=== PATIENT | male | born 1935 | race Caucasian/White ===

== ENCOUNTER 2024-12-21 18:45 | Inpatient (IN) | payer OTHER ==
[~2024-12-21] VITALS: Ht 165.1 cm; Wt 54.0 kg
[2024-12-21 19:15] LABS: BASOPHILS % (AUTO) 0.4 % (0.0-2.0); EOSINOPHILS # (AUTO) 0.1 K/uL (0.0-0.7); EOSINOPHILS % (AUTO) 1.1 % (0.0-6.0); HEMATOCRIT 28 % (39-51); HEMOGLOBIN 8.9 g/dL (13.5-17.5); LYMPHOCYTES % (AUTO) 15.2 % (20.0-44.0); MEAN CORPUSCULAR HEMOGLOBIN 25 PG (26.0-33.0); MEAN CORPUSCULAR HGB CONC 32 g/dl (31.0-36.0); MEAN CORPUSCULAR VOLUME 80 fL (80-96); MONOCYTES # (AUTO) 0.3 K/uL (0.1-1.30); MONOCYTES % (AUTO) 5.1 % (2.0-12.0); NEUTROPHILS # (AUTO) 5.1 K/uL (1.8-8.9); NEUTROPHILS % (AUTO) 78.2 % (43.0-81.0); PLATELET COUNT (AUTO) 389 K/uL (150-450); RED BLOOD CELL COUNT(AUTO) 3.51 MIL/uL (4.5-6.0); RED CELL DISTRIBUTION WIDTH 18.8 % (11.5-15.0); WHITE BLOOD COUNT (AUTO) 6.6 K/uL (4.3-11.0)
[2024-12-21] MEDS: IV NS 0.9% 1,000 ML BAG IV ONE (19:15)
[2024-12-21] MEDS ORDERED: ONDANSETRON HCL/PF 4 MG/2 ML VIAL ONE (19:19)
[2024-12-21] MEDS: ONDANSETRON HCL/PF - ER 4 MG/2 ML VIAL IV ONE (19:20)
[2024-12-21] MEDS ORDERED: MORPHINE SULFATE INJ 4 MG/ML DISP.SYRIN ONE (19:20)
[2024-12-21] MEDS: MORPHINE SULFATE INJ 2 MG/ML DISP.SYRIN IV ONE (19:25)
[2024-12-21] MEDS ORDERED: ACETAMINOPHEN ES 500 MG TABLET PO ONE (19:30)
[2024-12-21 19:31] LABS: INR 1.24 (0.91-1.10); PARTIAL THROMBOPLASTIN TIME 22.7 SEC (24.3-34.3)
[2024-12-21 19:32] LABS: ALANINE AMINOTRANSFERASE 33 U/L (12-78); ALBUMIN 3.1 g/dL (3.4-5.0); ALKALINE PHOSPHATASE 99 U/L (46-116); ASPARTATE AMINOTRANSFERASE 32 U/L (15-37); BILIRUBIN,DIRECT 0.2 mg/dL (0.0-0.2); BILIRUBIN,TOTAL 0.7 mg/dL (0.2-1.0); CARBON DIOXIDE 17 mmol/L (21-32); CHLORIDE 99 mmol/L (98-107); CREATININE 1.5 mg/dL (0.6-1.3); GLUCOSE 122 mg/dL (74-106); POTASSIUM 5.1 mmol/L (3.5-5.1); SODIUM SERUM 140 mmol/L (136-145); TOTAL PROTEIN, SERUM 7.1 g/dL (6.4-8.2); UREA NITROGEN, BLOOD 42 mg/dL (7-18)
[2024-12-21] MEDS ORDERED: BISA10SU11 RC (19:39)
[2024-12-21] MEDS ORDERED: ATOR40TA PO (19:39)
[2024-12-21] MEDS ORDERED: ONDA8TAB65 PO (19:39)
[2024-12-21] MEDS ORDERED: FOLI0.4T6 PO (19:39)
[2024-12-21] MEDS ORDERED: ZINC50TA69 PO (19:39)
[2024-12-21] MEDS ORDERED: CRAN300T PO (19:39)
[2024-12-21] MEDS ORDERED: DOCU100C36 PO (19:39)
[2024-12-21] MEDS ORDERED: MAGN400O6 PO (19:39)
[2024-12-21] MEDS ORDERED: POLY17PO4 PO (19:39)
[2024-12-21] MEDS ORDERED: AMIN30LI66 PO (19:39)
[2024-12-21] MEDS ORDERED: BISO10TA PO (19:39)
[2024-12-21] MEDS ORDERED: PIPERACI/TAZO 3.375GM/D5W 50ML PB IV ONE (19:39)
[2024-12-21] MEDS ORDERED: HYDR-4076 PO (19:39)
[2024-12-21] MEDS ORDERED: GUAI100S9 PO (19:39)
[2024-12-21] MEDS ORDERED: ACET325T53 PO (19:39)
[2024-12-21] MEDS ORDERED: CHOL100043 PO (19:39)
[2024-12-21] MEDS ORDERED: ACET-73 PO (19:39)
[2024-12-21] MEDS ORDERED: GABA300C PO (19:39)
[2024-12-21] MEDS ORDERED: FERR325T24 PO (19:39)
[2024-12-21] MEDS ORDERED: ASCO500T10 PO (19:39)
[2024-12-21] MEDS ORDERED: MULT-213 PO (19:39)
[2024-12-21] MEDS ORDERED: FURO40TA5 PO (19:39)
[2024-12-21] MEDS: PIPERACILLIN /TAZOBACTAM 3.375 G in IV D5W 50 ML IV ONE (19:43)
[2024-12-21 19:46] LABS: LACTIC ACID 13.5 mmol/L (0.4-2.0)
[2024-12-21] MEDS ORDERED: CT SWABBABLE VALVE TRANS SET 1 EA INFUS.SET MC ONE (19:48)
[2024-12-21] MEDS ORDERED: IV NS 0.9% 250 ML IV ONE (19:48)
[2024-12-21] MEDS ORDERED: ACETAMINOPHEN 650 MG/SUPP.RECT RC ONE (19:54)
[2024-12-21] MEDS: ACETAMINOPHEN 650 MG/SUPP.RECT RC ONE (20:10)
[2024-12-21] MEDS: VANCOMYCIN 1 GM in IV D5W 250 ML IV ONE (20:20)
[2024-12-21 20:35] LABS: APPEARANCE,URINE CLEAR (CLEAR); BILIRUBIN,URINE NEGATIVE (NEGATIVE); BLOOD, URINE NEGATIVE Ery/uL (NEGATIVE); COLOR,URINE YELLOW (YELLOW); KETONES,URINE NEGATIVE (NEGATIVE); LEUKOCYTE ESTERASE ,URINE NEGATIVE (NEGATIVE); NITRITE, URINE NEGATIVE (NEGATIVE); PROTEIN,URINE 1+ mg/dl (NEGATIVE); UGLUCOSE NEGATIVE (NEGATIVE); UROBILINOGEN,URINE 0.2 EU/dL (0.2)
[2024-12-21] MEDS: IV NS 0.9% 500 ML BAG IV ONE (20:40)
[2024-12-21 21:25] LABS: ADD URINE CULTURE NO; BACTERIA,URINE Few /HPF (None Seen); CALCIUM OXALATE CRYSTALS,UR Rare /HPF (None Seen); SQUAMOUS EPITHELIAL CELL,UR Rare /HPF (None Seen); WBC,URINE 0-2 /HPF (0-3)
[2024-12-21] MEDS ORDERED: NOREPINEPHRINE 8MG/250ML RTU 250 ML IV ONE (22:18)
[2024-12-21] MEDS: NOREPINEPHRINE 8 MG in IV D5W 242 ML IV PRN (22:30)
[2024-12-21] MEDS ORDERED: MAGNESIUM HYDROXIDE 30 ML UDC PO PRN (23:30)
[2024-12-21] MEDS ORDERED: MAG HYDROX/AL HYDROX/SIMETH 30 ML UDC PO PRN (23:30)
[2024-12-21] MEDS ORDERED: IV NS 0.9% 250 ML IV PRN (23:30)
[2024-12-21] MEDS ORDERED: ACETAMINOPHEN 650 MG/SUPP.RECT RC PRN (23:30)
[2024-12-21] MEDS ORDERED: ONDANSETRON HCL/PF 4 MG/2 ML VIAL IVP PRN (23:30)
[2024-12-21 23:36] VITALS: BP 129/49; TEMP 98.3; O2SAT 88
[2024-12-21 23:45] VITALS: BP 96/40; O2SAT 94
[2024-12-22] VITALS (88 sets, daily range): BP systolic 79–124; BP diastolic 39–82; TEMP 97.9–98.5; O2SAT 92–100
[2024-12-22 04:56] LABS: CALCIUM, SERUM 7.9 mg/dL (8.5-10.1); CARBON DIOXIDE 23 mmol/L (21-32); CHLORIDE 102 mmol/L (98-107); CHOLESTEROL 75 mg/dL (<200); CREATININE 1.6 mg/dL (0.6-1.3); GLUCOSE 109 mg/dL (74-106); HDL CHOLESTEROL 39 mg/dL (40-60); LDL 32 mg/dL (0-99); MAGNESIUM 1.9 mg/dL (1.8-2.4); PHOSPHORUS 3.8 mg/dL (2.5-4.9); POTASSIUM 3.8 mmol/L (3.5-5.1); SODIUM SERUM 138 mmol/L (136-145); TRIGLYCERIDES 107 mg/dL (30-150); UREA NITROGEN, BLOOD 45 mg/dL (7-18)
[2024-12-22 04:59] LABS: BASOPHILS % (AUTO) 0.4 % (0.0-2.0); EOSINOPHILS # (AUTO) 0.1 K/uL (0.0-0.7); EOSINOPHILS % (AUTO) 0.8 % (0.0-6.0); HEMATOCRIT 24 % (39-51); HEMOGLOBIN 7.9 g/dL (13.5-17.5); MEAN CORPUSCULAR HEMOGLOBIN 26 PG (26.0-33.0); MEAN CORPUSCULAR HGB CONC 33 g/dl (31.0-36.0); MEAN CORPUSCULAR VOLUME 78 fL (80-96); MONOCYTES # (AUTO) 0.5 K/uL (0.1-1.30); MONOCYTES % (AUTO) 4.3 % (2.0-12.0); NEUTROPHILS # (AUTO) 9.7 K/uL (1.8-8.9); NEUTROPHILS % (AUTO) 85.5 % (43.0-81.0); PLATELET COUNT (AUTO) 333 K/uL (150-450); RED CELL DISTRIBUTION WIDTH 18.7 % (11.5-15.0); WHITE BLOOD COUNT (AUTO) 11.3 K/uL (4.3-11.0)
[2024-12-22] MEDS: NOREPINEPHRINE 8MG/250ML RTU 250 ML IV ONE (06:46)
[2024-12-22] MEDS: PIPERACILLIN /TAZOBACTAM 3.375 G in IV D5W 50 ML IV SCH (09:04)
[2024-12-22] MEDS: PANTOPRAZOLE 40 MG VIAL IV SCH (09:05)
[2024-12-22] MEDS: Z GUARD REMEDY 4 OZ OINT TP PRN (09:07)
[2024-12-22] MEDS: IV D5/ 0.9% NACL 1,000 ML IV PRN (09:07)
[2024-12-22] MEDS: VANCOMYCIN 750 MG in IV D5W 250 ML IV SCH (20:43)
[2024-12-23] VITALS (41 sets, daily range): BP systolic 81–158; BP diastolic 41–103; TEMP 97–98.6; O2SAT 98–100
[2024-12-23 05:02] LABS: BILIRUBIN,TOTAL 0.8 mg/dL (0.2-1.0); CALCIUM, SERUM 7.5 mg/dL (8.5-10.1); CREATININE 1.6 mg/dL (0.6-1.3); MAGNESIUM 1.9 mg/dL (1.8-2.4); PHOSPHORUS 3.1 mg/dL (2.5-4.9); POTASSIUM 3.7 mmol/L (3.5-5.1); TOTAL PROTEIN, SERUM 5.1 g/dL (6.4-8.2)
[2024-12-23 08:07] LABS: BASOPHILS % (AUTO) 0.2 % (0.0-2.0); EOSINOPHILS % (AUTO) 0.3 % (0.0-6.0); LYMPHOCYTES # (AUTO) 0.7 K/uL (0.8-4.8); LYMPHOCYTES % (AUTO) 5.5 % (20.0-44.0); MEAN CORPUSCULAR HEMOGLOBIN 26 PG (26.0-33.0); MEAN CORPUSCULAR HGB CONC 33 g/dl (31.0-36.0); MEAN CORPUSCULAR VOLUME 77 fL (80-96); MONOCYTES # (AUTO) 0.8 K/uL (0.1-1.30); MONOCYTES % (AUTO) 6.2 % (2.0-12.0); NEUTROPHILS # (AUTO) 11.2 K/uL (1.8-8.9); NEUTROPHILS % (AUTO) 87.8 % (43.0-81.0); PLATELET COUNT (AUTO) 265 K/uL (150-450); RED BLOOD CELL COUNT(AUTO) 2.55 MIL/uL (4.5-6.0); RED CELL DISTRIBUTION WIDTH 19.2 % (11.5-15.0); WHITE BLOOD COUNT (AUTO) 12.7 K/uL (4.3-11.0)
[2024-12-23 08:10] LABS: HEMATOCRIT 20 % (39-51)
[2024-12-23 08:12] LABS: HEMOGLOBIN 6.5 g/dL (13.5-17.5)
[2024-12-23 08:24] LABS: CREATININE, URINE 84.3 MG/DL (30.0-125.0); URINE TOTAL PROTEIN 97.2 mg/dL (0-11.9)
[2024-12-23] MEDS: PANTOPRAZOLE 40 MG TABLET.DR PO SCH (08:51)
[2024-12-23] MEDS: ENSURE ENLIVE 237 ML LIQUID (VANILLA) PO SCH (08:51)
[2024-12-23 13:15] LABS: LYMPHOCYTES % (MANUAL) 4 % (16-48); MONOCYTES % (MANUAL) 2 % (0-11.0); NEUTROPHILS % (MANUAL) 94 (42-76)
[2024-12-23 13:16] LABS: ANISOCYTOSIS 1+; HYPOCHROMASIA 1+; OVALOCYTES 1+; PLATELET ESTIMATE ADEQUATE
[2024-12-23] MEDS: PIPERACILLIN /TAZOBACTAM 3.375 G in IV D5W 100 ML IV SCH (14:21)
[2024-12-24] VITALS: BP 136/71; TEMP 97.7; O2SAT 100
[2024-12-24 04:00] VITALS: BP 128/64; TEMP 97.5; O2SAT 98
[2024-12-24 08:07] LABS: PTH, INTACT 99 pg/mL (15-65)
[2024-12-24 08:14] LABS: CREATININE 1.1 mg/dL (0.6-1.3); POTASSIUM 3.4 mmol/L (3.5-5.1)
[2024-12-24] MEDS: POTASSIUM CHLORIDE 20 MEQ TAB.PRT.SR PO SCH (16:28)
[2024-12-24] MEDS ORDERED: MUPIROCIN OINT 2% 22 GM TUBE NS SCH (21:00)
[2024-12-25 08:10] LABS: *SPE A/G RATIO 0.8 (0.7-1.7); *SPE ALBUMIN 2.1 g/dL (2.9-4.4); *SPE ALPHA-1-GLOBULIN 0.4 g/dL (0.0-0.4); *SPE ALPHA-2-GLOBULIN 0.8 g/dL (0.4-1.0); *SPE BETA GLOBULIN 0.6 g/dL (0.7-1.3); *SPE GLOBULIN, TOTAL 2.6 g/dL (2.2-3.9); *SPE M-SPIKE Not Observed g/dL (Not Observed); *SPE PROTEIN TOTAL 4.7 g/dL (6.0-8.5); *SPEGAMMA GLOBULIN 0.8 g/dL (0.4-1.8)
== END 2024-12-24 17:42 | disposition short-term general hospital (02) | DRG 871 ==
LOC: ER 18:57 → ICU 23:08 → TELE1 12-23 10:48
PROC: 02HV33Z Insertion of Infusion Device into Superior Vena Cava, Percutaneous Approach (ICD-10-PCS; principal; 2024-12-22)
PROC: B548ZZA Ultrasonography of Superior Vena Cava, Guidance (ICD-10-PCS; 2024-12-22)
PROC: 30233N1 Transfusion of Nonautologous Red Blood Cells into Peripheral Vein, Percutaneous Approach (ICD-10-PCS; 2024-12-23)
DX: A41.9 Sepsis, unspecified organism (principal); G93.41 Metabolic encephalopathy; I21.A1 Myocardial infarction type 2; J69.0 Pneumonitis due to inhalation of food and vomit; J15.69 Pneumonia due to other Gram-negative bacteria; R65.21 Severe sepsis with septic shock; N17.9 Acute kidney failure, unspecified; I50.32 Chronic diastolic (congestive) heart failure; I11.0 Hypertensive heart disease with heart failure; E78.5 Hyperlipidemia, unspecified; E86.0 Dehydration; K21.9 Gastro-esophageal reflux disease without esophagitis; E83.9 Disorder of mineral metabolism, unspecified; Z20.822 Contact with and (suspected) exposure to COVID-19; M06.9 Rheumatoid arthritis, unspecified; K44.9 Diaphragmatic hernia without obstruction or gangrene; Z85.038 Personal history of other malignant neoplasm of large intestine; Z90.49 Acquired absence of other specified parts of digestive tract; Z95.0 Presence of cardiac pacemaker; Z95.1 Presence of aortocoronary bypass graft; Z95.2 Presence of prosthetic heart valve; D64.9 Anemia, unspecified; I25.10 Atherosclerotic heart disease of native coronary artery without angina pectoris; K52.9 Noninfective gastroenteritis and colitis, unspecified; I35.0 Nonrheumatic aortic (valve) stenosis
CPT/HCPCS: 36415; 71045-TC; 80048-TC; 80053-TC; 80061-TC; 80076-TC; 81001; 82550-TC; 82553; 82570-TC; 83605-TC; 83735-TC; 83970; 84100-TC; 84155; 84165; 84300-TC; 84484-TC; 85025-TC; 85027-TC; 85730-TC; 86850-TC; 87040-TC; 87081-TC; 92526; 92611-TC; 93307-TC; 97110-TC; 97116-TC; 97530-TC; A4223; G0378; J2270; J2405; J2470; J2543; J3370; J3371; J7030; J7040; J7042; J7050; J7060; P9016